=== PATIENT | male | born 1990 | race Caucasian/White ===

== ENCOUNTER 2017-03-24 16:58 | Emergency (ER) | payer OTHER ==
[~2017-03-24] VITALS: Ht 172.7 cm; Wt 86.4 kg
[~2017-03-24 16:58] MED LIST: FLEXERIL 1010 MG/TAB PO
[2017-03-24 17:02] VITALS: TEMP 99.2
[2017-03-24 17:17] LABS: BASO # 0.1 (0.0-0.2); BASO % 0.6 % (0.0-2.0); EOS # 0.1 (0.0-0.7); EOS % 0.4 % (0-4.0); GRAN % 75.9 % (42.2-75.2); HEMATOCRIT 43.8 % (42.0-52.0); HEMOGLOBIN 15.1 g/dl (13.5-18.0); LYMPH % 15.4 % (20.0-51.0); MEAN CELL VOLUME 92 fl (80.0-100.0); MEAN CORPUSCULAR HEMOGLOBIN 32 pg (27.0-31.0); MEAN CORPUSCULAR HGB CONC 35 g/dl (33.0-37.0); MONO # 0.9 (0.1-0.6); PLATELET COUNT 237 K/mm3 (130-400); RED BLOOD COUNT 4.78 M/mm3 (4.20-5.60)
[2017-03-24 17:20] LABS: PROTHROMBIN TIME 11.7 SECONDS (9.7-12.8)
[2017-03-24 17:31] LABS: ALBUMIN 4.8 gm/dL (3.5-5.0); BILIRUBIN,TOTAL 0.5 mg/dL (0.0-1.0); CALCIUM 9.7 mg/dL (8.4-10.2); CREATININE, serum 0.96 mg/dL (0.66-1.25); POTASSIUM 3.4 mmol/L (3.4-5.0)
[2017-03-25 00:42] VITALS: BP 149/98; PULSE 96
== END 2017-03-25 00:44 ==
LOC: COL.ER 16:58
PROVIDERS: Emergency Medicine
DX: S72.351A Displaced comminuted fracture of shaft of right femur, initial encounter for closed fracture (principal); F12.90 Cannabis use, unspecified, uncomplicated; F17.210 Nicotine dependence, cigarettes, uncomplicated; Z23 Encounter for immunization; V49.40XA Driver injured in collision with unspecified motor vehicles in traffic accident, initial encounter; Y93.I9 Activity, other involving external motion
CPT/HCPCS: J2270; J7120

== ENCOUNTER → 2017-05-23 | Outpatient (CLI) | payer OTHER | LOC: COL.RAD 17:17 | DX: M25.774 Osteophyte, right foot (principal); S72.35 Comminuted fracture of shaft of femur; Z98.890 Other specified postprocedural states ==